=== PATIENT | female | born 1960 | race Caucasian/White ===

== ENCOUNTER 2016-11-17 10:02 | Emergency (ER) | payer OTHER ==
[~2016-11-17] VITALS: Wt 94.0 kg
[~2016-11-17 10:02] MED LIST: ASPI-664 PO; ATOR20TA38 PO; CARAS PO; CARV3.1260 PO; LOSA50TA6 PO; OMEP20CA16 PO; TRAM-40 PO
[2016-11-17] MEDS ORDERED: NAPR-688 PO (11:32)
[2016-11-17] MEDS ORDERED: CIPR500T4 PO (11:32)
[2016-11-17] MEDS ORDERED: RANI150T9 PO (11:32)
--- NOTE | 2016-11-17 11:41 | ERD ---
ER Documentation Chief Complaint Date/Time DATE: 11/17/16 TIME: 11:37 Chief Complaint COUGH, CONGESTION, FEVER AT HOME HPI This 56-year-old female presents to the emergency room for 4 days of throat pain bilaterally her pain and cough. Chest is a 2 day history of dysuria with an episode of blood-tinged urine. She's had chills but denies fevers. She still able to take by mouth well. She has not checked taking anything at all for the symptoms. She has no decrease in hearing. She is not diabetic. ROS All systems reviewed and are negative except as per history of present illness. Medications Home Meds Active Scripts Ranitidine Hcl* (Zantac*) 150 Mg Tablet, 150 MG PO BID, #60 TAB Prov:PRINCE LARA DO 11/17/16 Naproxen* (Naproxen*) 500 Mg Tablet, 500 MG PO BID, #10 TAB Prov:PRINCE LARA DO 11/17/16 Ciprofloxacin Hcl* (Ciprofloxacin Hcl*) 500 Mg Tablet, 500 MG PO BID for 5 Days , TAB Prov:PRINCE LARA DO 11/17/16 Reported Medications Tramadol Hcl* (Ultram*) 50 Mg Tablet, 50 MG PO Q8, TAB 04/28/16 Omeprazole* (Omeprazole*) 20 Mg Capsule.dr, 20 MG PO DAILY, #30 CAP 04/28/16 Atorvastatin Calcium* (Atorvastatin Calcium*) 20 Mg Tablet, 10 MG PO QHS, #30 TAB 04/28/16 Losartan Potassium* (Losartan Potassium*) 50 Mg Tablet, 50 MG PO DAILY, TAB 04/28/16 Sucralfate* (Carafate*) 1 Gm/10 Ml Susp, 1 GM PO QID, EA 04/28/16 Carvedilol* (Carvedilol*) 3.125 Mg Tablet, 12.5 MG PO BID, TAB 05/25/14 Aspirin* (Aspirin* EC) 81 Mg Tablet.dr, 81 MG PO DAILY, TAB 05/25/14 Allergies Allergies: Coded Allergies: dexamethasone (Verified Allergy, Severe, 02/28/15) DIZZY/ VOMITING hydrocodone (Verified Allergy, Unknown, 02/28/15) diclofenac (Verified Adverse Reaction, Intermediate, PALPITATION, 04/28/16) temazepam (Verified Adverse Reaction, Intermediate, PALPITATION, 04/28/16) PMhx/Soc History of Surgery: Yes (CARDIAC CATH 1990) Anesthesia Reaction: No Hx Neurological Disorder: No Hx Respiratory Disorders: No Hx Cardiac Disorders: Yes (HTN,HLP) Hx Psychiatric Problems: No Hx Miscellaneous Medical Probl: Yes (LEFT DORSUM FOOT CYST) Hx Alcohol Use: No Hx Substance Use: No Hx Tobacco Use: No Smoking Status: Never smoker Physical Exam Vitals Vital Signs Date Time Temp Pulse Resp B/P Pulse Ox O2 Delivery O2 Flow Rate FiO2 11/17/16 10:06 97.4 97 18 147/79 98 Physical Exam Const: [] No distress Head: Atraumatic Eyes: Normal Conjunctiva ENT: Normal External Ears, Nose and Mouth. Neck: Full range of motion..~ No meningismus. Resp: Clear to auscultation bilaterally Cardio: Regular rate and rhythm, no murmurs Abd: Soft, non tender, non distended. Normal bowel sounds Skin: No petechiae or rashes Back: No midline or flank tenderness Ext: No cyanosis, or edema Neur: Awake and alert and oriented 3, no focal deficits Procedures/MDM Procedures a scribe the patient has a urinary tract infection as well as upper respiratory infection. Physical exam is completely benign. Patient is well- appearing with no signs of dehydration. I am going to discharge her with naproxen, Cipro, and Zantac as she has acid reflux is only on Prilosec. Also giving her verbal instructions that she may want obtain a referral for urologist or primary care doctor for cystoscopy. She verbalizes understanding of these instructions. Primary care follow-up in 2-3 days and return precautions to the ER no improvement of symptoms. Departure Diagnosis: Primary Impression: Viral syndrome Additional Impression: UTI (urinary tract infection) Condition: Stable Patient Instructions: Understanding Urinary Tract Infections (UTIs), Uri, Viral , No Abx (Adult) Additional Instructions: Llame al doctor MAANA y any brandon CRISTHIAN PARA DENTRO DE 2-3 FIERRO.Dgale a la secretaria que nosotros le instruimos hacer esta cristhian.Avise o llame si bruce condicin se empeora antes de la cristhian. Regresa aqui si peor o no mejor. RPINCE LARA DO Nov 17, 2016 11:41
== END 2016-11-17 11:49 | disposition home or self-care (01) ==
LOC: FTE 10:02
DX: B34.9 Viral infection, unspecified (principal); N39.0 Urinary tract infection, site not specified; I10 Essential (primary) hypertension; Z79.82 Long term (current) use of aspirin
CPT/HCPCS: 99283

== ENCOUNTER 2017-02-20 13:14 | Emergency (ER) | payer OTHER ==
[~2017-02-20] VITALS: Ht 154.9 cm; Wt 94.0 kg
[~2017-02-20 13:14] MED LIST changes: +CIPR500T4 PO; +NAPR-688 PO; +RANI150T9 PO
[2017-02-20 13:19] VITALS: Ht 154.9 cm; Wt 94.0 kg
[2017-02-20] MEDS ORDERED: PANTOPRAZOLE 40 MG INJ IV STA (13:36)
[2017-02-20] MEDS ORDERED: ONDANSETRON 4 MG INJ IV STA (13:36)
[2017-02-20] MEDS ORDERED: CARV12.579 PO (13:52)
[2017-02-20] MEDS ORDERED: DONE5TAB7 PO (13:52)
[2017-02-20 14:01] LABS: ADD SCAN DIFF NO
[2017-02-20 14:04] LABS: BASOPHIL # 0.1 10^3/ul (0.0-0.1); BASOPHILS % 0.7 % (0.0-2.0); EOSINOPHILS # 0.1 10^3/ul (0.0-0.5); EOSINOPHILS % 1.1 % (0.0-7.0); HEMOGLOBIN 13.3 g/dl (12.0-16.0); LYMPHOCYTES # 1.7 10^3/ul (0.8-2.9); LYMPHOCYTES % 17.9 % (15.0-51.0); MEAN CORPUSCULAR HEMOGLOBIN 31.3 pg (29.0-33.0); MEAN CORPUSCULAR HGB CONC 34.1 g/dl (32.0-37.0); MEAN CORPUSCULAR VOLUME 91.8 fl (82.0-101.0); MEAN PLATELET VOLUME 10.3 fl (7.4-10.4); MONOCYTE # 0.5 10^3/ul (0.3-0.9); NEUTROPHIL # 7.1 10^3/ul (1.6-7.5); NEUTROPHILS % 75.1 % (39.0-77.0); PLATELET COUNT 241 10^3/UL (140-415); RED BLOOD COUNT 4.25 10^6/ul (4.20-5.40); RED CELL DISTRIBUTION WIDTH 13.2 % (11.5-14.5); WHITE BLOOD COUNT 9.4 10^3/ul (4.8-10.8)
[2017-02-20 14:14] VITALS: BP 125/76; PULSE 87; RESP 16
[2017-02-20 14:18] LABS: INR 0.97; PARTIAL THROMBOPLASTIN TIME 25.3 Sec (25.0-35.0); PROTIME 12.9 Sec (12.2-14.2)
[2017-02-20 14:21] LABS: ALANINE AMINOTRANSFERASE 68 IU/L (13-69); ALBUMIN 4.2 g/dl (3.3-4.9); ALBUMIN/GLOBULIN RATIO 1.13; ALKALINE PHOSPHATASE 121 IU/L (42-121); ANION GAP 13 (8-16); ASPARTATE AMINO TRANSFERASE 45 IU/L (15-46); BILIRUBIN,INDIRECT 0.4 mg/dl (0-1.1); BILIRUBIN,TOTAL 0.4 mg/dl (0.2-1.3); BLOOD UREA NITROGEN 15 mg/dl (7-20); CALCIUM 9.4 mg/dl (8.4-10.2); CARBON DIOXIDE 22 mmol/L (21-31); CHLORIDE 108 mmol/L (97-110); GLUCOSE 135 mg/dl (70-220); POTASSIUM 4.4 mmol/L (3.5-5.1); SODIUM 139 mmol/L (135-144); TOTAL PROTEIN 7.9 g/dl (6.1-8.1)
[2017-02-20 14:34] LABS: TROPONIN-I < 0.010 ng/ml (0.00-0.12)
[2017-02-20] MEDS ORDERED: ONDA4TAB14 PO (14:38)
--- NOTE | 2017-02-20 14:40 | ERD ---
ER Documentation Chief Complaint Date/Time DATE: 02/20/17 TIME: 14:39 Chief Complaint pt bib family with c/o abd pain, "spitting up blood" since 5 am HPI Patient is a 57-year-old female with hypertension who presents saying that she is spitting up blood. She also complains of nausea and left upper quadrant abdominal pain. The symptoms started at 6 AM. She takes a baby aspirin. She has a history of reflux and gastritis. She had endoscopy done 1 year ago. Upon review of old medical record she has multiple visits to the ER for various complaints. ROS All systems reviewed and are negative except as per history of present illness. Medications Home Meds Active Scripts Ondansetron (Ondansetron Odt) 4 Mg Tab.rapdis, 4 MG PO Q6H Y for NAUSEA AND/OR VOMITING, #30 TAB Prov:DENNISE ROSADO MD 02/20/17 Reported Medications Donepezil* (Donepezil*) 5 Mg Tablet, 5 MG PO DAILY, #30 TAB 02/20/17 Carvedilol* (Carvedilol*) 12.5 Mg Tablet, 12.5 MG PO BID, #60 TAB 02/20/17 Omeprazole* (Omeprazole*) 20 Mg Capsule.dr, 20 MG PO DAILY, #30 CAP 04/28/16 Atorvastatin Calcium* (Atorvastatin Calcium*) 20 Mg Tablet, 10 MG PO QHS, #30 TAB 04/28/16 Losartan Potassium* (Losartan Potassium*) 50 Mg Tablet, 50 MG PO DAILY, TAB 04/28/16 Sucralfate* (Carafate*) 1 Gm/10 Ml Susp, 1 GM PO QID, EA 04/28/16 Aspirin* (Aspirin* EC) 81 Mg Tablet., 81 MG PO DAILY, TAB 05/25/14 Discontinued Reported Medications Tramadol Hcl* (Ultram*) 50 Mg Tablet, 50 MG PO Q8, TAB 04/28/16 Carvedilol* (Carvedilol*) 3.125 Mg Tablet, 12.5 MG PO BID, TAB 05/25/14 Discontinued Scripts Ranitidine Hcl* (Zantac*) 150 Mg Tablet, 150 MG PO BID, #60 TAB Prov:PRINCE LARA DO 11/17/16 Naproxen* (Naproxen*) 500 Mg Tablet, 500 MG PO BID, #10 TAB Prov:PRINCE LARA DO 11/17/16 Ciprofloxacin Hcl* (Ciprofloxacin Hcl*) 500 Mg Tablet, 500 MG PO BID for 5 Days , TAB Prov:PRINCE LARA DO 11/17/16 Allergies Allergies: Coded Allergies: dexamethasone (Verified Allergy, Severe, 02/20/17) DIZZY/ VOMITING hydrocodone (Verified Allergy, Unknown, 02/20/17) diclofenac (Verified Adverse Reaction, Intermediate, PALPITATION, 02/20/17) temazepam (Verified Adverse Reaction, Intermediate, PALPITATION, 02/20/17) PMhx/Soc History of Surgery: Yes (CARDIAC CATH 1990) Anesthesia Reaction: No Hx Neurological Disorder: No Hx Respiratory Disorders: No Hx Cardiac Disorders: Yes (HTN,HLP) Hx Psychiatric Problems: No Hx Miscellaneous Medical Probl: Yes (LEFT DORSUM FOOT CYST) Hx Alcohol Use: No Hx Substance Use: No Hx Tobacco Use: No Smoking Status: Never smoker FmHx Family History: diabetes Physical Exam Vitals Vital Signs Date Time Temp Pulse Resp B/P Pulse Ox O2 Delivery O2 Flow Rate FiO2 02/20/17 14:14 87 16 125/76 98 Room Air 02/20/17 13:19 98.3 85 18 139/65 98 Physical Exam Const: No acute distress, no vomiting in the ER Head: Atraumatic Eyes: Normal Conjunctiva ENT: Normal External Ears, Nose and Mouth. Neck: Full range of motion..~ No meningismus. Resp: Clear to auscultation bilaterally Cardio: Regular rate and rhythm, no murmurs Abd: Soft, non tender, non distended. Normal bowel sounds Skin: No petechiae or rashes Back: No midline or flank tenderness Ext: No cyanosis, or edema Neur: Awake and alert Psych: Normal Mood and Affect Result Diagram: 02/20/17 1340 02/20/17 1340 Results 24 hrs Laboratory Tests Test 02/20/17 13:40 White Blood Count 9.410^3/ul Red Blood Count 4.2510^6/ul Hemoglobin 13.3g/dl Hematocrit 39.0% Mean Corpuscular Volume 91.8fl Mean Corpuscular Hemoglobin 31.3pg Mean Corpuscular Hemoglobin Concent 34.1g/dl Red Cell Distribution Width 13.2% Platelet Count 17734^3/UL Mean Platelet Volume 10.3fl Neutrophils % 75.1% Lymphocytes % 17.9% Monocytes % 5.0% Eosinophils % 1.1% Basophils % 0.7% Nucleated Red Blood Cells % 0.0/100WBC Neutrophils # 7.110^3/ul Lymphocytes # 1.710^3/ul Monocytes # 0.510^3/ul Eosinophils # 0.110^3/ul Basophils # 0.110^3/ul Nucleated Red Blood Cells # 0.010^3/ul Prothrombin Time 12.9Sec Prothrombin Time Ratio 1.0 INR International Normalized Ratio 0.97 Activated Partial Thromboplast Time 25.3Sec Sodium Level 139mmol/L Potassium Level 4.4mmol/L Chloride Level 108mmol/L Carbon Dioxide Level 22mmol/L Anion Gap 13 Blood Urea Nitrogen 15mg/dl Creatinine 0.80mg/dl Glucose Level 135mg/dl Calcium Level 9.4mg/dl Total Bilirubin 0.4mg/dl Direct Bilirubin 0.00mg/dl Indirect Bilirubin 0.4mg/dl Aspartate Amino Transf (AST/SGOT) 45IU/L Alanine Aminotransferase (ALT/SGPT) 68IU/L Alkaline Phosphatase 121IU/L Troponin I < 0.010ng/ml Total Protein 7.9g/dl Albumin 4.2g/dl Globulin 3.70g/dl Albumin/Globulin Ratio 1.13 Current Medications Medications (Trade) Dose Ordered Sig/George Route PRN Reason Start Time Stop Time Status Last Admin Dose Admin Pantoprazole (Protonix Iv) 40 mg ONCE STAT IV 02/20/17 13:36 02/20/17 13:38 DC 02/20/17 13:55 Ondansetron HCl (Zofran Inj) 4 mg ONCE STAT IV 02/20/17 13:36 02/20/17 13:38 DC 02/20/17 13:55 Procedures/MDM EKG read by me: Rate/Rhythm: Regular rate and rhythm at a rate of 86 Intervals: Normal Impression: No evidence of ischemia or arrhythmia Patient is a 57-year-old female presents with vomiting. She has normal vital signs. Her laboratory studies are normal including a normal hemoglobin. EKG is normal without signs of ischemia. At this point I doubt significant GI bleed. I doubt esophageal varices. I doubt life-threatening GI bleed. I believe outpatient management is appropriate. This is most likely related to gastritis versus esophagitis. The patient will need to follow-up closely with her primary doctor within 24-48 hours. She will be given a prescription for Zofran. She already takes omeprazole at home. She was given copies of her laboratory studies prior to discharge. Departure Diagnosis: Primary Impression: Hematemesis Nausea presence: with nausea Qualified Code: K92.0 - Hematemesis with nausea Additional Impression: Abdominal pain Abdominal location: left upper quadrant Qualified Code: R10.12 - Left upper quadrant pain Condition: Fair Patient Instructions: Abdominal Pain, Vomiting (6Y-Adult) Additional Instructions: Llame al doctor MAANA y any brandon CRISTHIAN PARA DENTRO DE 1-2 FIERRO.Dgale a la secretaria que nosotros le instruimos hacer esta cristhian.Avise o llame si bruce condicin se empeora antes de la cristhian. Regresa aqui si peor o no mejor. DENNISE ROSADO MD Feb 20, 2017 14:40
== END 2017-02-20 15:21 | disposition home or self-care (01) ==
LOC: E/R 13:14
DX: K92.0 Hematemesis (principal); R10.12 Left upper quadrant pain; I10 Essential (primary) hypertension; Z79.82 Long term (current) use of aspirin
CPT/HCPCS: 36415; 80053; 84484; 85025; 85610; 85730; 86850; 86900; 86901; 93005; 96374; 96375; C9113; J2405; Z7502

== ENCOUNTER 2017-11-05 16:19 | Emergency (ER) | payer OTHER ==
[~2017-11-05] VITALS: Wt 93.5 kg
[~2017-11-05 16:19] MED LIST changes: +CARV12.579 PO; -CARV3.1260 PO; -CIPR500T4 PO; +DONE5TAB7 PO; -NAPR-688 PO; +ONDA4TAB14 PO; -RANI150T9 PO; -TRAM-40 PO
[2017-11-05] MEDS ORDERED: ACETAMINOPHEN 500 MG TAB PO STA (16:49)
[2017-11-05] MEDS ORDERED: KETOROLAC 30 MG INJ IM STA (16:49)
[2017-11-05] MEDS ORDERED: ONDANSETRON (ODT) 4 MG TAB ODT STA (16:49)
--- NOTE | 2017-11-05 17:34 | RADRPT ---
PROCEDURE: XR Chest. CLINICAL INDICATION: Fever, cough. TECHNIQUE: Single frontal portable chest was obtained. COMPARISON: 07/10/2014.. FINDINGS: Limitation: Mildly expiratory study. Cardiac silhouette is upper limit normal. Pulmonary vasculature appears normal. There are hazy opaci ties in the lower lung brower, right greater than left. Costophrenic angles appear well defined. The re is a suture anchor in the right humeral head from prior surgery. IMPRESSION: 1. Hazy appearing air space opacities particularly at the right lung base. This may represent an ac marilou inflammatory process. RPTAT: [facility] Physician Nazario Date Time Electronically viewed and signed by Physician Nazario on 11/05/2017 17:33 /
[2017-11-05] MEDS ORDERED: OSLT75C PO (17:50)
[2017-11-05] MEDS ORDERED: AZIT250T94 PO (17:50)
[2017-11-05] MEDS ORDERED: ACET500C5 PO (17:50)
[2017-11-05] MEDS ORDERED: IBUP-1542 PO (17:50)
[2017-11-05] MEDS ORDERED: IBUP400T22 PO (17:52)
--- NOTE | 2017-11-05 17:54 | ERD ---
ER Documentation Chief Complaint Chief Complaint FLU LIKE SYMPTOMS/CHILLS SINCE HS HPI This 57-year-old female presents with fever and body aches cough and chills since last night. Patient had endoscopy 3 days ago for a biopsy presumably due to gastritis. She has no bleeding, abdominal pain, diarrhea, sustained anterior chest pain. ROS All systems reviewed and are negative except as per history of present illness. Medications Home Meds Active Scripts Ibuprofen* (Motrin*) 400 Mg Tab, 400 MG PO Q6, #15 TAB Prov:FABIOLA HOLT MD 11/05/17 Oseltamivir Phosphate* (Tamiflu*) 75 Mg Capsule, 75 MG PO BID for 5 Days, CAP Prov:FABIOLA HOLT MD 11/05/17 Acetaminophen* (Tylophen*) 500 Mg Capsule, 1 CAP PO Q6H Y for PAIN AND OR ELEVATED TEMP, #15 CAP Prov:FABOILA HOLT MD 11/05/17 Azithromycin* (Zithromax*) 250 Mg Tablet, 250 MG PO .ZPACK DIRECTED, #6 TAB TAKE 500 MG (2 TABS) THE FIRST DAY THEN 250 MG (1 TAB) DAYS 2-5 Prov:FABIOLA HOLT MD 11/05/17 Ondansetron (Ondansetron Odt) 4 Mg Tab.rapdis, 4 MG PO Q6H Y for NAUSEA AND/OR VOMITING, #30 TAB Prov:DENNISE ROSADO MD 02/20/17 Reported Medications Donepezil* (Donepezil*) 5 Mg Tablet, 5 MG PO DAILY, #30 TAB 02/20/17 Carvedilol* (Carvedilol*) 12.5 Mg Tablet, 12.5 MG PO BID, #60 TAB 02/20/17 Omeprazole* (Omeprazole*) 20 Mg Capsule., 20 MG PO DAILY, #30 CAP 04/28/16 Atorvastatin Calcium* (Atorvastatin Calcium*) 20 Mg Tablet, 10 MG PO QHS, #30 TAB 04/28/16 Losartan Potassium* (Losartan Potassium*) 50 Mg Tablet, 50 MG PO DAILY, TAB 04/28/16 Sucralfate* (Carafate*) 1 Gm/10 Ml Susp, 1 GM PO QID, EA 04/28/16 Aspirin* (Aspirin* EC) 81 Mg Tablet., 81 MG PO DAILY, TAB 05/25/14 Discontinued Scripts Ibuprofen* (Motrin*) 600 Mg Tab, 600 MG PO Q6, #15 TAB Prov:FABIOLA HOLT MD 11/05/17 Allergies Allergies: Coded Allergies: dexamethasone (Verified Allergy, Severe, 02/20/17) DIZZY/ VOMITING hydrocodone (Verified Allergy, Unknown, 02/20/17) diclofenac (Verified Adverse Reaction, Intermediate, PALPITATION, 02/20/17) temazepam (Verified Adverse Reaction, Intermediate, PALPITATION, 02/20/17) PMhx/Soc History of Surgery: Yes (CARDIAC CATH 1990) Anesthesia Reaction: No Hx Neurological Disorder: No Hx Respiratory Disorders: No Hx Cardiac Disorders: Yes (HTN,HLP) Hx Psychiatric Problems: No Hx Miscellaneous Medical Probl: Yes (LEFT DORSUM FOOT CYST) Hx Alcohol Use: No Hx Substance Use: No Hx Tobacco Use: No Smoking Status: Never smoker Physical Exam Vitals Vital Signs Date Time Temp Pulse Resp B/P Pulse Ox O2 Delivery O2 Flow Rate FiO2 11/05/17 16:31 101.3 110 20 131/77 95 Physical Exam Alert, uncomfortable presumed his general malaise. Head: Atraumatic Eyes: Normal Conjunctiva ENT: Normal External Ears, Nose and Mouth. TMs and oropharynx normal. Neck: Full range of motion..~ No meningismus. Resp: Clear to auscultation bilaterally Cardio: Regular rate and rhythm, no murmurs Abd: Soft, non tender, non distended. Normal bowel sounds Skin: No petechiae or rashes Back: No midline or flank tenderness Ext: No cyanosis, or edema Neur: Awake and alert Psych: Normal Mood and Affect Results 24 hrs Current Medications Medications (Trade) Dose Ordered Sig/George Route PRN Reason Start Time Stop Time Status Last Admin Dose Admin Acetaminophen (Tylenol Tab) 1,000 mg ONCE STAT PO 11/05/17 16:49 11/05/17 16:51 DC 11/05/17 16:54 Ondansetron HCl (Zofran Odt) 8 mg ONCE STAT ODT 11/05/17 16:49 11/05/17 16:51 DC 11/05/17 16:54 Ketorolac Tromethamine (Toradol) 30 mg ONCE STAT IM 11/05/17 16:49 11/05/17 16:51 DC 11/05/17 16:54 Procedures/MDM Chest X-ray 1V Interpreted by me: Soft Tissue: No acute abnormalities Bones: No acute abnormalities Mediastinum/Cardiac Silhouette/Lungs: Slight haziness of the right lung base suggestive of possible inflammation. Impression-no consolidation possible haziness due to inflammation in the lower lobes. Patient is given Toradol 30 mg IM and Tylenol 1 g p.o. Patient has signs and symptoms of acute URI and febrile illness, likely influenza. Given the findings on x-ray she will be treated with Zithromax, fever control as well as Tamiflu given the short duration of symptoms. There is no evidence of hypoxemia or respiratory distress. The patient was stable with no new complaints during the ER course. Clinically, there is no current evidence to suggest meningitis, sepsis, acute abdomen, , acute coronary syndrome, pulmonary embolism, or any other emergent condition appearing to require further evaluation or hospitalization. The patient should certainly return for any new or worsening symptoms per the aftercare instructions. They should otherwise follow-up with her primary care doctor for reevaluation this week. Departure Diagnosis: Primary Impression: Upper respiratory infection URI type: unspecified URI Qualified Code: J06.9 - Upper respiratory tract infection, unspecified type Condition: Stable Patient Instructions: Influenza (Adult) Additional Instructions: probablamente un virus que dura 2-4 bill. cheque otro vez en el proximo jeremias para mas simptomas- vomito, dolor, leon, problemas con respirando, o con bruce doctor primario. Cheque otro vez con bruce doctor primario en el proximo bill or regresa para mas o nueva simptomas. FABIOLA HOLT MD Nov 05, 2017 17:54
[2017-11-05 18:15] VITALS: BP 128/77; PULSE 88; RESP 20; TEMP 99.8
== END 2017-11-05 18:26 | disposition home or self-care (01) ==
LOC: FTE 16:19
DX: J06.9 Acute upper respiratory infection, unspecified (principal); I10 Essential (primary) hypertension; Z79.82 Long term (current) use of aspirin
CPT/HCPCS: 71010; 96372; J1885; Z7502; Z7610

== ENCOUNTER 2018-10-01 07:08 | Emergency (ER) | END 2018-10-01 12:02 | disposition home or self-care (01) ==

== ENCOUNTER 2019-02-25 20:35 | Emergency (ER) | payer OTHER ==
[~2019-02-25] VITALS: Ht 157.5 cm; Wt 92.3 kg
[~2019-02-25 20:35] MED LIST changes: +ACET500C5 PO; -ASPI-664 PO; +ASPI-817 PO; +BUPR150T6 PO; +CHOL500010 PO; +FER325 PO; +GABA100C14 PO; +HYDR12.58 PO; -LOSA50TA6 PO; +OMEG1CAP2 PO; -OMEP20CA16 PO; -ONDA4TAB14 PO; +PANT40TA4 PO; +UBID200C7 PO
[2019-02-25 20:53] VITALS: Ht 157.5 cm; Wt 92.3 kg
[2019-02-26] MEDS ORDERED: BISM-34 PO (02:03)
[2019-02-26] MEDS ORDERED: ACET-141 PO (02:03)
[2019-02-26] MEDS ORDERED: ONDA4TAB14 PO (02:06)
--- NOTE | 2019-02-26 02:06 | ERD ---
ER Documentation Chief Complaint Chief Complaint C/O VOMITING AND DIARRHEA SINCE YESTERDAY ROS All systems reviewed and are negative except as per history of present illness. Medications Home Meds Active Scripts Acetaminophen* (Acetaminophen*) 500 MG Extra Strength Tablet, 500 MG PO Q4H PRN for PAIN AND OR ELEVATED TEMP, #30 TAB Prov:KIMBERLEE LI DO 02/26/19 Bismuth Subsalicylate* (Bismuth Subsalicylate*) 262 Mg/15 Ml Oral.susp, 15 ML PO Q6 PRN for DIARRHEA for 7 Days, #1 BOTTLE Prov:KIMBERLEE LI DO 02/26/19 Acetaminophen* (Tylophen*) 500 Mg Capsule, 1 CAP PO Q6H PRN for PAIN AND OR ELEVATED TEMP, #15 CAP Prov:FABIOLA HOLT MD 11/05/17 Reported Medications Wake-3 Acid Ethyl Esters (Lovaza) 1 Gm Capsule, 4 GM PO DAILY, CAP 10/01/18 Ubidecarenone* (Co Q-10*) 200 Mg Capsule, 200 MG PO DAILY, CAP 10/01/18 Cholecalciferol (Vitamin D3) 5,000 Unit Tablet, 5000 UNIT PO DAILY, TAB 10/01/18 Atorvastatin Calcium* (Atorvastatin Calcium*) 20 Mg Tablet, 20 MG PO QHS, #30 TAB 10/01/18 Bupropion Hcl* (Bupropion XL*) 150 Mg Tab.er.24h, 150 MG PO DAILY, TAB.SA 10/01/18 Ferrous Sulfate* (Ferrous Sulfate*) 325 Mg Tabec, 325 MG PO DAILY, TAB 10/01/18 Gabapentin* (Gabapentin*) 100 Mg Capsule, 100 MG PO QHS, #90 CAP 10/01/18 Pantoprazole* (Pantoprazole*) 40 Mg Tablet.dr, 40 MG PO AC BREAKFAST, TAB 10/01/18 Hydrochlorothiazide* (Hydrochlorothiazide*) 12.5 Mg Tablet, 12.5 MG PO DAILY, #30 TAB 10/01/18 Donepezil* (Donepezil*) 5 Mg Tablet, 5 MG PO DAILY, #30 TAB 02/20/17 Carvedilol* (Carvedilol*) 12.5 Mg Tablet, 12.5 MG PO BID, #60 TAB 02/20/17 Sucralfate* (Carafate*) 1 Gm/10 Ml Susp, 1 GM PO QID, EA 04/28/16 Aspirin* (Aspirin* EC) 81 Mg Tablet.dr, 81 MG PO DAILY, TAB 05/25/14 Allergies Allergies: Coded Allergies: dexamethasone (Verified Allergy, Severe, 10/01/18) DIZZY/ VOMITING tramadol (Verified Allergy, Severe, 10/01/18) hydrocodone (Verified Allergy, Unknown, 10/01/18) diclofenac (Verified Adverse Reaction, Intermediate, PALPITATION, 10/01/18) temazepam (Verified Adverse Reaction, Intermediate, PALPITATION, 10/01/18) PMhx/Soc Medical and Surgical Hx: pt denies Surgical Hx History of Surgery: Yes (CARDIAC CATH 1990, left foot cyst) Anesthesia Reaction: No Hx Neurological Disorder: No Hx Respiratory Disorders: No Hx Cardiac Disorders: Yes (HTN,HLP) Hx Psychiatric Problems: No Hx Miscellaneous Medical Probl: Yes (GERD) Hx Alcohol Use: No Hx Substance Use: No Hx Tobacco Use: No Smoking Status: Never smoker Physical Exam Vitals Vital Signs Date Temp Pulse Resp B/P (MAP) Pulse Ox O2 O2 Flow FiO2 Time Delivery Rate 02/25/19 100.3 90 19 129/74 94 20:53 (92) Physical Exam Const: No acute distress Head: Atraumatic Eyes: Normal Conjunctiva ENT: Normal External Ears, Nose and Mouth. Neck: Full range of motion. No meningismus. Resp: Clear to auscultation bilaterally Cardio: Regular rate and rhythm, no murmurs Abd: Soft, non tender, non distended. Normal bowel sounds Skin: No petechiae or rashes Back: No midline or flank tenderness Ext: No cyanosis, or edema Neur: Awake and alert Psych: Normal Mood and Affect Result Diagram: 02/26/19 0150 Results 24 hrs Laboratory Tests Test 02/26/19 01:50 White Blood Count 4.7 10^3/ul Red Blood Count 4.65 10^6/ul Hemoglobin 14.5 g/dl Hematocrit 42.9 % Mean Corpuscular Volume 92.3 fl Mean Corpuscular Hemoglobin 31.2 pg Mean Corpuscular Hemoglobin Concent 33.8 g/dl Red Cell Distribution Width 12.8 % Platelet Count 183 10^3/UL Mean Platelet Volume 9.7 fl Immature Granulocytes % 0.200 % Neutrophils % 75.2 % Lymphocytes % 15.8 % Monocytes % 7.3 % Eosinophils % 0.9 % Basophils % 0.6 % Nucleated Red Blood Cells % 0.0 /100WBC Immature Granulocytes # 0.010 10^3/ul Neutrophils # 3.5 10^3/ul Lymphocytes # 0.7 10^3/ul Monocytes # 0.3 10^3/ul Eosinophils # 0.0 10^3/ul Basophils # 0.0 10^3/ul Nucleated Red Blood Cells # 0.0 10^3/ul Departure Diagnosis: Primary Impression: Neck pain Additional Impression: Diarrhea Diarrhea type: unspecified type Qualified Codes: R19.7 - Diarrhea, unspecified Condition: Fair Patient Instructions: Treating Diarrhea, Self-Care for Vomiting and Diarrhea, Neck Pain, No Trauma Additional Instructions: Llame al doctor MAANA y any brandon CRISTHIAN PARA DENTRO DE 1-2 FIERRO.Dgale a la secretaria que nosotros le instruimos hacer esta cristhian.Avise o llame si bruce condicin se empeora antes de la cristhian. Regresa aqui si peor o no mejor. KIMBERLEE LI DO Feb 26, 2019 02:06
[2019-02-26 06:09] VITALS: BP 141/76; PULSE 82; RESP 16
== END 2019-02-26 06:10 | disposition home or self-care (01) ==
LOC: FTE 20:35
DX: M54.2 Cervicalgia (principal); I10 Essential (primary) hypertension; Z79.82 Long term (current) use of aspirin
CPT/HCPCS: 72040; 80053; 85025; 93005; Z7502

== ENCOUNTER 2019-07-15 14:51 | Emergency (ER) | payer OTHER ==
[~2019-07-15] VITALS: Ht 157.5 cm; Wt 92.0 kg
[~2019-07-15 14:51] MED LIST changes: +ACET-141 PO; +BISM-34 PO; +DONE5TAB46 PO; +LOSA100T15 PO; +ONDA4TAB14 PO; +SUCR1TAB56 PO
[2019-07-15 15:19] VITALS: Ht 157.5 cm; Wt 92.0 kg
[2019-07-15] MEDS ORDERED: ACETAMINOPHEN 325 MG TAB PO ONE (19:30)
[2019-07-15 19:37] VITALS: BP 110/72; PULSE 81; RESP 22
== END 2019-07-15 19:40 | disposition home or self-care (01) ==
LOC: E/R 14:51
DX: R07.9 Chest pain, unspecified (principal)
CPT/HCPCS: 71045; 93005; Z7502; Z7610